=== PATIENT | female | born 1990 | race Caucasian/White ===

== ENCOUNTER 2016-10-28 05:56 | Emergency (ER) ==
[2016-10-28 06:17] LABS: URINE SOURCE CLEAN CATCH
--- NOTE | 2016-10-28 06:21 | PROVIDER DOCUMENTATION ---
HPI-General Adult - General Chief Complaint: UTI Symptoms Stated Complaint: FEMALE Time Seen by Provider: 10/28/16 06:15 Source: patient Allergies/Adverse Reactions: Patient Allergies Allergy/AdvReac Type Severity Reaction Status Date / Time No Known Allergies Allergy Verified 10/28/16 06:07 Home Medications: Home Medication List Medication Instructions Recorded Confirmed Last Taken Type Hydrocodone/Acetaminophen [[place] 1 each PO Q8H PRN PRN #14 tablet 10/28/16 Unknown Rx 5-325 Tablet] Tamsulosin [Flomax] 0.4 mg PO DAILY #7 capsule 10/28/16 Unknown Rx - History of Present Illness -Gen Adult Nature of Presenting Problems: right flank pain and dysuria since 1 am. Denies fever. Location of Pain/Injury: reports: other (right flank) Pain Radiation: reports: flank (R) Quality of Pain: reports: burning Severity: reports: mild Onset/Duration: reports: 4-6 hours ago Timing: reports: still present Context/Activities at Onset: reports: moderate activity Modifying Factors: improves with: nothing Associated Symptoms: denies: anxiety, diaphoresis, diarrhea, fever/chills, nausea, shortness of breath, vomiting Similar Symptoms Previously?: Yes Recently seen or treated by another doctor?: No Review of Systems - Adult - REVIEW OF SYSTEMS - ADULT Constitutional: reports: no symptoms reported Eyes: reports: no symptoms reported Ears, Nose, Mouth & Throat: reports: no symptoms reported Cardiovascular: reports: no symptoms reported Respiratory: reports: no symptoms reported Gastrointestinal: reports: no symptoms reported Genitourinary: reports: dysuria, frequency, frequent UTI's. denies: urinary retention Musculoskeletal: reports: no symptoms reported Integumentary: reports: no symptoms reported Neurological: reports: no symptoms reported Psychiatric: reports: no symptoms reported Endocrine: reports: no symptoms reported Hematologic/Lymphatic: reports: no symptoms reported Allergic/Immunologic: reports: no symptoms reported All Other Systems: Reviewed and Negative Past History - Adult - PAST MEDICAL HISTORY-ADULT Review of Records: reports: Nursing Assessment Review Major Childhood Illnesses: reports: history unknown - PRIOR SURGERIES/PROCEDURES Surgical/Procedure History: reports: reviewed, not pertinent - IMMUNIZATION STATUS Childhood Immunizations: See Nurse Assessment Flu Vaccine: See Nurse Assessment - FAMILY HISTORY Family History: reviewed, not pertinent - SOCIAL HISTORY Smoking: cigarettes Physical Exam-General - PHYSICAL EXAM-ADULT Initial Vital Signs Reviewed: Yes - CONSTITUTIONAL General Appearance: appears well, no apparent distress - HEAD, EARS, NOSE, MOUTH & THROAT HENMT: normocephalic/atraumatic - RESPIRATORY Respiratory: lungs clear, normal breath sounds - CARDIOVASCULAR Cardiovascular: regular rate, rhythm - GASTROINTESTINAL (ABDOMEN) Abdominal Exam: non tender, soft - MUSCULOSKELETAL Back Exam: normal inspection Extremity: no pedal edema - SKIN Integumentary: normal color - NEUROLOGIC Neurologic: grossly normal - PSYCHIATRIC Psych/Mental Status: oriented x 3 Progress - PLAN OF CARE/RESULTS Progress/Plan/Lab Results: Laboratory Tests 10/28/16 10/28/16 06:05 06:05 Urine Source CLEAN CATCH Urine Color YELLOW Urine Clarity CLEAR Urine pH 6.0 Ur Specific [place] 1.015 Urine Protein NEGATIVE Urine Ketones NEGATIVE Urine Blood 3+ A Urine Nitrite NEGATIVE Urine Bilirubin NEGATIVE Urine Urobilinogen NORMAL Urine Microscopic RBC 20-40 A Urine WBC NEGATIVE Urine Microscopic WBC <10 Ur Epithelial Cells <10 Urine Bacteria 2+ Urine Glucose NEGATIVE Urine Test NEGATIVE The renal scan shows a non obstructing stone of 4 mm size on the right. Departure - Departure Time of Disposition Order: 07:44 DIAGNOSIS: Ureterolithiasis Disposition: HOME 01 Certified Medical Emergency: Emergent Condition: Good Prescriptions: Tamsulosin [Flomax] 0.4 mg PO DAILY #7 capsule Hydrocodone/Acetaminophen [[place] 5-325 Tablet] 1 each PO Q8H PRN PRN #14 tablet PRN Reason: Pain
[2016-10-28 06:29] LABS: BILIRUBIN URINE NEGATIVE (NEGATIVE); BLOOD URINE 3+ (NEGATIVE); CLARITY CLEAR (CLEAR); COLOR YELLOW; GLUCOSE URINE NEGATIVE (NEGATIVE); LEUKOCYTES URINE NEGATIVE (NEGATIVE); NITRITE URINE NEGATIVE (NEGATIVE); PROTEIN URINE NEGATIVE (NEGATIVE); SP GRAVITY URINE 1.015; UROBILINOGEN URINE NORMAL
[2016-10-28 06:46] LABS: URINE CULTURE PL NEEDED? YES; URINE EPITHELIAL CELLS <10 /HPF (<10); URINE RBC 20-40 /HPF (<10); URINE WBC <10 /HPF (<10)
[2016-10-28 08:10] VITALS: BP 111/72
--- NOTE | 2016-10-28 08:28 | Diag Imaging Result Document ---
PROCEDURE NAME: RENAL STONE SEARCH - 10/28/2016 CT RENAL STONE SEARCH WITHOUT CONTRAST: TECHNIQUE: A dose reduction protocol was used. Compared with 07/07/2015. FINDINGS: There is no hydronephrosis or perinephric edema identified. There are nonobstructing stones in the bilateral kidneys measuring up to 4 mm. There is a 4-mm calcification in the right true pelvis which was not present at this location on the previous exam. This may represent a stone in the distal right ureter slightly proximal to the ureterovesical junction. It is also possible that this may represent a phlebolith near the ureter. The ureter is difficult to discretely visualize in this location, as it is not substantially distended. There is no evidence of bowel obstruction. The appendix is unremarkable. There is no free air. There are no calcified gallstones seen. IMPRESSION: 1. Nonobstructing stones in bilateral kidneys. 2. Possible 4-mm stone in distal right ureter, versus phlebolith adjacent to the ureter. No hydronephrosis.
== END 2016-10-28 08:10 | disposition home or self-care (01) ==
LOC: P.ED 05:56
DX: N20.1 Calculus of ureter (principal); N20.0 Calculus of kidney; R10.9 Unspecified abdominal pain; R30.0 Dysuria; R35.0 Frequency of micturition; Z87.440 Personal history of urinary (tract) infections
CPT/HCPCS: 74176; 81001; 81025; 87088

== ENCOUNTER 2016-10-30 05:58 | Emergency (ER) ==
[2016-10-30] MEDS ORDERED: MORPHINE IV ONE (06:38)
[2016-10-30] MEDS ORDERED: ZOFRAN IV ONE (06:39)
[2016-10-30] MEDS ORDERED: NS 1,000 ML IV SCH (06:45)
--- NOTE | 2016-10-30 07:12 | PROVIDER DOCUMENTATION ---
HPI-Abdominal Pain/GI Problem - General Chief Complaint: Flank Pain Stated Complaint: poss kidney stone Time Seen by Provider: 10/30/16 06:15 Source: patient Allergies/Adverse Reactions: Patient Allergies Allergy/AdvReac Type Severity Reaction Status Date / Time No Known Allergies Allergy Verified 10/30/16 06:09 - History of Present Illness-ABD Nature of Presenting Problems: 26 yo WF with history of nephrolithiasis c/o Rt flank pain without radiation. She was seen 10/28 at [facility] and did have rnal stone search which confirmed intra renal small stones and possibly a 4 mm non obstructing stone at the UVJ. U /A confirmed microscopic hematuria. She was given scrip for [place] and discharged. Her pain persist. Abdominal Pain Onset Location: reports: flank Pain Radiation: reports: no radiation Quality of Pain: reports: sharp Severity in ED: reports: moderate Onset/Duration: reports: 2 days ago Timing: reports: still present Activities at Onset: reports: none Exposure to sick contacts?: No Associated Symptoms: reports: loss of appetite, nausea, vomiting Last BM: unsure Dark Stools Present?: reports: none noticed # of Vomiting Episodes: 5 Bruising or Bleeding Gums?: No Similar Symptoms Previously?: Yes Recently seen or treated by another doctor?: Yes (Last night at [facility]) Review of Systems - Adult - REVIEW OF SYSTEMS - ADULT Constitutional: reports: no symptoms reported Eyes: reports: no symptoms reported Ears, Nose, Mouth & Throat: reports: no symptoms reported Cardiovascular: reports: no symptoms reported Respiratory: reports: no symptoms reported Gastrointestinal: reports: no symptoms reported, see HPI, vomiting Genitourinary: reports: see HPI, flank pain Musculoskeletal: reports: no symptoms reported Integumentary: reports: no symptoms reported Neurological: reports: no symptoms reported Psychiatric: reports: no symptoms reported Endocrine: reports: no symptoms reported Hematologic/Lymphatic: reports: no symptoms reported Allergic/Immunologic: reports: no symptoms reported All Other Systems: Reviewed and Negative Past History - Adult - PAST MEDICAL HISTORY-ADULT Review of Records: reports: Old Records Reviewed, Nursing Assessment Review Major Childhood Illnesses: reports: history unknown - PRIOR SURGERIES/PROCEDURES Surgical/Procedure History: reports: reviewed, not pertinent - IMMUNIZATION STATUS Childhood Immunizations: See Nurse Assessment Flu Vaccine: See Nurse Assessment - FAMILY HISTORY Family History: reviewed, not pertinent Physical Exam-General - PHYSICAL EXAM-ADULT Initial Vital Signs Reviewed: Yes - CONSTITUTIONAL General Appearance: appears well, alert - EYES Eyes: PERRL/EOMI, pink conjunctivae - HEAD, EARS, NOSE, MOUTH & THROAT HENMT: normocephalic/atraumatic, moist mucous membranes, normal ENT inspection - NECK Neck: non-tender, full range of motion, supple - RESPIRATORY Respiratory: chest non-tender, lungs clear - CARDIOVASCULAR Cardiovascular: normal peripheral pulses, regular rate, rhythm - CHEST (BREASTS) Chest/Breast: deferred - GASTROINTESTINAL (ABDOMEN) Abdominal Exam: non tender - GENITOURINARY Female Genitalia/Pelvic Exam: deferred Rectal Exam: deferred - MUSCULOSKELETAL Back Exam: no vertebral tenderness. negative: decreased range of motion, ecchymosis, kyphosis, muscle spasm Extremity: normal range of motion, non-tender, normal gait, normal inspection, no pedal edema, no calf tenderness, normal capillary refill, pelvis stable, joint effusion - SKIN Integumentary: normal color, normal turgor - NEUROLOGIC Neurologic: grossly normal Progress - PLAN OF CARE/RESULTS Progress/Plan/Lab Results: Laboratory Tests 10/30/16 10/30/16 10/30/16 07:34 07:49 07:49 Sodium 139 Potassium 3.5 Chloride 99 Carbon Dioxide 23 L Anion Gap 17 BUN 12 Creatinine 1.0 H Estimated GFR/1.73 m2 > 60 BUN/Creatinine Ratio 12 Glucose 111 H Calculated Osmolality 278 Calcium 9.8 Total Bilirubin 0.52 AST 18 ALT 22 Alkaline Phosphatase 64 Total Protein 8.1 Albumin 4.8 Globulin 3.3 Albumin/Globulin Ratio 1.5 Urine Source Cancelled CLEAN CATCH Urine Color Cancelled YELLOW Urine Clarity Cancelled Urine Turbidity HAZY Urine pH Cancelled 5.5 Ur Specific [place] Cancelled 1.021 Urine Protein Cancelled 30 A Ur Glucose (Stick) NEGATIVE Urine Ketones Cancelled Ur Ketones (Stick) TRACE A Urine Blood Cancelled SMALL A Urine Nitrite Cancelled NEGATIVE Urine Bilirubin Cancelled NEGATIVE Urine Urobilinogen Cancelled Urobilinogen Dipstick NORMAL Urine Leukocytes NEGATIVE Urine WBC (Auto) <10 Urine RBC (Auto) <10 U Epithel Cells (Auto) >10 A Urine Bacteria (Auto) 2+ Urine Microscopic RBC Cancelled Urine WBC Cancelled Urine Microscopic WBC Cancelled Ur Epithelial Cells Cancelled Urine Crystals Cancelled Small Round Cells Cancelled Urine Bacteria Cancelled Urine Casts Cancelled Urine Yeast Cancelled Urine Glucose Cancelled Orders Category Date Time Status gb [US GB < RUQ (LIMITED)] [US] Stat Exams 10/30/16 06:42 Draft COMPREHENSIVE METABOLIC PANEL [CHEM] Stat Lab 10/30/16 07:34 Completed URINALYSIS W/POSS RFLX CULT [URINALYSIS] Routine Lab 10/30/16 07:49 Completed URINE CULTURE [RM] Routine Lab 10/30/16 08:35 Received 0.9% Sodium Chloride Inj [Ns] 1,000 ml Med 10/30/16 06:45 Active IV 250 mls/hr Morphine Med 10/30/16 06:38 Discontinued 4 mg IV NOW ONE Ondansetron [Zofran] Med 10/30/16 06:39 Discontinued 4 mg IV NOW ONE Vital Signs Temp Pulse Resp BP Pulse Ox 10/30/16 06:02 98.2 F 91 H 18 119/85 100 No Known Allergies Allergy (Verified 10/30/16 06:09) Laboratory 10/30/16 10/30/16 10/30/16 07:49 07:49 07:34 Sodium 139 Potassium 3.5 Chloride 99 Carbon Dioxide 23 L Anion Gap 17 BUN 12 Creatinine 1.0 H Estimated GFR/1.73 m2 > 60 BUN/Creatinine Ratio 12 Glucose 111 H Calculated Osmolality 278 Calcium 9.8 Total Bilirubin 0.52 AST 18 ALT 22 Alkaline Phosphatase 64 Total Protein 8.1 Albumin 4.8 Globulin 3.3 Albumin/Globulin Ratio 1.5 Urine Source CLEAN CATCH Cancelled Urine Color YELLOW Cancelled Urine Clarity Cancelled Urine Turbidity HAZY Urine pH 5.5 Cancelled Ur Specific [place] 1.021 Cancelled Urine Protein 30 A Cancelled Ur Glucose (Stick) NEGATIVE Urine Ketones Cancelled Ur Ketones (Stick) TRACE A Urine Blood SMALL A Cancelled Urine Nitrite NEGATIVE Cancelled Urine Bilirubin NEGATIVE Cancelled Urine Urobilinogen Cancelled Urobilinogen Dipstick NORMAL Urine Leukocytes NEGATIVE Urine WBC (Auto) <10 Urine RBC (Auto) <10 U Epithel Cells (Auto) >10 A Urine Bacteria (Auto) 2+ Urine Microscopic RBC Cancelled Urine WBC Cancelled Urine Microscopic WBC Cancelled Ur Epithelial Cells Cancelled Urine Crystals Cancelled Small Round Cells Cancelled Urine Bacteria Cancelled Urine Casts Cancelled Urine Yeast Cancelled Urine Glucose Cancelled - REASSESSMENT Reassessment #1 Time Reassessed: 09:28 Reassessment Comment: no significant change. Lab reviewed - ULTRASOUND (By Radiology) 1 US Study: Renal (Right hydronephrosis with probable ureteroo vesicle 4 mm stone) Departure - Departure Time of Disposition Order: 09:29 DIAGNOSIS: Ureterolithiasis Disposition: HOME 01 Certified Medical Emergency: Emergent Condition: Good Additional Instructions: Follow up with Dr crawford or Dr Pantoja Referrals: None,PCP [Primary Care Provider] - Duke Crawford MD [STAFF PHYSICIAN] - Lai Pantoja DO [STAFF PHYSICIAN] -
--- NOTE | 2016-10-30 07:35 | Diag Imaging Result Document ---
PROCEDURE NAME: US GB < RUQ (LIMITED) - 10/30/2016 RIGHT UPPER QUADRANT ULTRASOUND, 10/30/2016: COMPARISON: CT 10/28/2016. FINDINGS: The exam is challenging due to the patient's large body size. There is moderate right hydronephrosis. The liver, gallbladder, and pancreas are normal. The common bile duct measures 3 mm. Aorta, IVC, and main portal vein are patent. IMPRESSION: Right hydronephrosis. A distal obstruction is suggested, presumably from renal stones.
[2016-10-30 08:13] LABS: URINE MICRO REVIEW NEEDED? NO; URINE SOURCE CLEAN CATCH
[2016-10-30 08:32] LABS: AGAP 17; ALBUMIN 4.8 g/dL (3.5-5.0); ALKALINE PHOSPHATASE 64 U/L (32-104); BUN 12 mg/dL (8-22); CALCIUM 9.8 mg/dL (8.8-10.2); CHLORIDE 99 mmol/L (98-107); COSMO 278; GOT 18 U/L (10-30); GPT 22 U/L (10-36); POTASSIUM 3.5 mmol/L (3.5-5.1); SODIUM 139 mmol/L (136-145); TCO2 23 mmol/L (25-35); TOTAL BILIRUBIN 0.52 mg/dL (0.20-1.00); TOTAL PROTEIN 8.1 g/dL (6.3-8.3)
[2016-10-30 08:32] LABS: BILIRUBIN URINE NEGATIVE (NEGATIVE); BLOOD URINE SMALL (NEGATIVE); COLOR YELLOW; GLUCOSE URINE NEGATIVE (NEGATIVE); LEUKOCYTES URINE NEGATIVE (NEGATIVE); NITRITE URINE NEGATIVE (NEGATIVE); PH URINE 5.5; PROTEIN URINE 30 mg/dL (NEGATIVE); SP GRAVITY URINE 1.021; TURBIDITY URINE HAZY (CLEAR); UR EPITHELIAL CELLS >10 /HPF (<10); URINE BACTERIA 2+ /HPF; URINE CULTURE NEEDED? YES; URINE RBC <10 /HPF (<10); URINE WBC <10 /HPF (<10); UROBILINOGEN URINE NORMAL (NORMAL)
[2016-10-30 10:54] VITALS: BP 124/72
== END 2016-10-30 10:52 | disposition home or self-care (01) ==
LOC: ED 05:58
DX: N20.1 Calculus of ureter (principal); R10.9 Unspecified abdominal pain; R11.2 Nausea with vomiting, unspecified; Z87.442 Personal history of urinary calculi
CPT/HCPCS: 76705; 80053; 81001; 87088; J2270; J2405; J7030

== ENCOUNTER 2016-11-04 07:35 | Emergency (ER) ==
[2016-11-04] MEDS ORDERED: TORADOL IM ONE (07:56)
[2016-11-04 08:07] LABS: URINE MICRO REVIEW NEEDED? NO; URINE SOURCE CLEAN CATCH
[2016-11-04 08:12] LABS: BILIRUBIN URINE SMALL (NEGATIVE); BLOOD URINE TRACE (NEGATIVE); COLOR ORANGE; GLUCOSE URINE NEGATIVE (NEGATIVE); LEUKOCYTES URINE NEGATIVE (NEGATIVE); NITRITE URINE POSITIVE (NEGATIVE); PROTEIN URINE TRACE mg/dL (NEGATIVE); SP GRAVITY URINE 1.019; TURBIDITY URINE CLEAR (CLEAR); UROBILINOGEN URINE 3 mg/dL (NORMAL)
[2016-11-04 08:13] LABS: UR EPITHELIAL CELLS <10 /HPF (<10); URINE BACTERIA 1+ /HPF; URINE CULTURE NEEDED? YES; URINE RBC <10 /HPF (<10); URINE WBC <10 /HPF (<10)
[2016-11-04] MEDS ORDERED: ROCEPHIN 1 GM/NS 50 ML IV ONE (08:28)
[2016-11-04] MEDS ORDERED: ZOFRAN IV ONE (08:28)
[2016-11-04] MEDS ORDERED: DILAUDID IV ONE (08:28)
[2016-11-04] MEDS ORDERED: NS 1,000 ML IV ONE (08:28)
--- NOTE | 2016-11-04 09:45 | PROVIDER DOCUMENTATION ---
HPI-Abdominal Pain/GI Problem - General Chief Complaint: Flank Pain Stated Complaint: recheck/kidney stone Time Seen by Provider: 11/04/16 07:53 Source: patient Allergies/Adverse Reactions: Patient Allergies Allergy/AdvReac Type Severity Reaction Status Date / Time No Known Allergies Allergy Verified 10/30/16 06:09 Home Medications: Home Medication List Medication Instructions Recorded Confirmed Last Taken Type Oxycodone HCl/Acetaminophen 1 each PO Q4HR #14 tablet 10/30/16 Unknown Rx [Percocet 7.5-325 mg Tablet] - History of Present Illness-ABD Nature of Presenting Problems: patient is a 26 y/o F that presents with right flank pain x 1 week with n/v. patient was recently seen dx with kidney stone and has f/u with today, pain got worse and came here. Abdominal Pain Onset Location: reports: flank (right) Quality of Pain: reports: sharp Severity in ED: reports: moderate Onset/Duration: reports: abrupt, 1 week ago Timing: reports: still present, intermittent Activities at Onset: reports: none Modifying Factors: worse with: urinating Associated Symptoms: reports: back/neck pain, genitourinary problems, nausea, vomiting. denies: fever/chills Similar Symptoms Previously?: Yes Recently seen or treated by another doctor?: Yes Review of Systems - Adult - REVIEW OF SYSTEMS - ADULT Constitutional: denies: chills, fever Eyes: reports: no symptoms reported Ears, Nose, Mouth & Throat: reports: no symptoms reported Cardiovascular: denies: chest pain, palpitations Respiratory: denies: cough, dyspnea on exertion, shortness of breath, wheezing Gastrointestinal: reports: abdominal pain, nausea, vomiting. denies: diarrhea Genitourinary: reports: dysuria, flank pain, hematuria Musculoskeletal: reports: no symptoms reported Integumentary: reports: no symptoms reported Neurological: reports: no symptoms reported Psychiatric: reports: no symptoms reported Endocrine: reports: no symptoms reported Hematologic/Lymphatic: reports: no symptoms reported Allergic/Immunologic: reports: no symptoms reported All Other Systems: Reviewed and Negative Past History - Adult - PAST MEDICAL HISTORY-ADULT Review of Records: reports: Old Records Reviewed, Nursing Assessment Review, Medications Reviewed - PRIOR SURGERIES/PROCEDURES Surgical/Procedure History: reports: reviewed, not pertinent - IMMUNIZATION STATUS Childhood Immunizations: See Nurse Assessment Flu Vaccine: See Nurse Assessment - FAMILY HISTORY Family History: reviewed, not pertinent - SOCIAL HISTORY Smoking: cigarettes, less than 1 pack/day Living Situation: family Physical Exam-General - PHYSICAL EXAM-ADULT Initial Vital Signs Reviewed: Yes - CONSTITUTIONAL General Appearance: alert, mild distress - EYES Eyes: PERRL/EOMI, pink conjunctivae - HEAD, EARS, NOSE, MOUTH & THROAT HENMT: normocephalic/atraumatic, moist mucous membranes, normal ENT inspection - NECK Neck: full range of motion, normal inspection - RESPIRATORY Respiratory: lungs clear, normal breath sounds, no respiratory distress, no accessory muscle use - CARDIOVASCULAR Cardiovascular: regular rate, rhythm, no edema, no murmur - GASTROINTESTINAL (ABDOMEN) Abdominal Exam: normal bowel sounds, non tender, soft, no organomegaly, no pulsatile mass - MUSCULOSKELETAL Back Exam: CVA tenderness (right). negative: decreased range of motion Extremity: normal range of motion, normal inspection - SKIN Integumentary: normal color, warm/dry - NEUROLOGIC Neurologic: grossly normal, no motor/sensory deficits - PSYCHIATRIC Psych/Mental Status: normal mood/affect, normal thought content, normal thought process, oriented x 3 Progress - PLAN OF CARE/RESULTS Progress/Plan/Lab Results: Vital Signs Temp Pulse Resp BP Pulse Ox 11/04/16 07:46 97.6 F 98 H 22 125/102 99 No Known Allergies Allergy (Verified 10/30/16 06:09) Oxycodone HCl/Acetaminophen [Percocet 7.5-325 mg Tablet] 1 each PO Q4HR #14 tablet 10/30/16 I&O 11/03/16 11/04/16 11/05/16 06:59 06:59 06:59 Output Total 30 Balance -30 Laboratory 11/04/16 07:45 Urine Source CLEAN CATCH Urine Color ORANGE Urine Turbidity CLEAR Urine pH 6.0 Ur Specific [place] 1.019 Urine Protein TRACE A Ur Glucose (Stick) NEGATIVE Ur Ketones (Stick) NEGATIVE Urine Blood TRACE A Urine Nitrite POSITIVE A Urine Bilirubin SMALL A Urobilinogen Dipstick 3 A Urine Leukocytes NEGATIVE Urine WBC (Auto) <10 Urine RBC (Auto) <10 U Epithel Cells (Auto) <10 Urine Bacteria (Auto) 1+ Orders Category Date Time Status UA NIMS W/REFLEX CULT [URINALYSIS] Stat Lab 11/04/16 07:45 Completed URINE CULTURE [RM] Routine Lab 11/04/16 08:50 Received 0.9% Sodium Chloride Inj [Ns] 1,000 ml Med 11/04/16 08:28 Discontinued IV 999 mls/hr CefTRIAXONE 1 GM/NS [Rocephin 1 gm/Ns] 50 ml Med 11/04/16 08:28 Discontinued IV NOW Hydromorphone [Dilaudid] Med 11/04/16 08:28 Discontinued 1 mg IV NOW ONE Ketorolac [Toradol] Med 11/04/16 07:56 Discontinued 60 mg IM NOW ONE Ondansetron [Zofran] Med 11/04/16 08:28 Discontinued 4 mg IV NOW ONE - CONSULTS/PCP/HOSPITALIST Notification #1 *Consult/PCP/Hospitalist*: Time Discussed: :43 Consult Disposition: F/U in office Departure - Departure Time of Disposition Order: 09:41 DIAGNOSIS: Renal colic UTI (urinary tract infection) Qualifiers: Urinary tract infection type: acute cystitis Hematuria presence: with hematuria Qualified Code(s): N30.01 - Acute cystitis with hematuria Disposition: HOME 01 Certified Medical Emergency: Emergent Condition: Stable Additional Instructions: ED Follow Up Instructions: You have been treated by a care provider in the Emergency Department. These instructions are being provided to you so you can have an understanding of how to care for yourself upon discharge. Upon discharge from the Emergency Department, you are responsible for making arrangements for follow-up care by a physician of your choice. Take all prescribed medications as directed. Return to the Emergency Department immediately for any new or worsening symptoms. You may call the Physician Referral phone number at [phone] to obtain a list of Physicians who are taking new patients. Referrals: None,PCP [Primary Care Provider] - Lai Pantoja, DO [STAFF PHYSICIAN] - (go straight to his office) Instructions: Renal Colic, [id number], Urinary Tract Infection, [id number] Attestation - Scribe Verification/Attestation Scribe:: Vishal Saha Acting as Scribe for:: Laci Colon Scribe documention review:: This chart was documented by a scribe and accurately reflects the service the provider performed and the decisions made by the provider. Physician Attestation - Physician Attestation I, the provider, attest to the following statement:: Laci Colon Physician documentation Attestation:: This documentation recorded by the scribe accurately reflects the service I personally performed and the decisions made by me.
[2016-11-04 10:11] VITALS: BP 122/78
== END 2016-11-04 10:15 | disposition home or self-care (01) ==
LOC: ED 07:35
DX: N30.01 Acute cystitis with hematuria (principal); N23 Unspecified renal colic; R10.9 Unspecified abdominal pain; R11.2 Nausea with vomiting, unspecified; R30.0 Dysuria; R31.9 Hematuria, unspecified; F17.210 Nicotine dependence, cigarettes, uncomplicated
CPT/HCPCS: 81001; 87088; J0696; J1170; J2405; J7030